=== PATIENT | female | born 1985 | race Caucasian/White ===

== ENCOUNTER 2018-08-18 15:07 | Emergency (ER) | payer OTHER, MEDICAID ==
[~2018-08-18] VITALS: Ht 160 cm; Wt 64.0 kg
[~2018-08-18 15:07] MED LIST: ACETAMINOPHEN-1 EAC1; HYDROCODONE-AP1 EAC6 PO; IBUPROFEN 800800 M1; IBUPROFEN 800800 M1 PO; MEDROLDOSEPACK PO; NORCO 5-325 TA1 EACH PO; PROMETHAZI6.25 MG/2 PO; ROBAXIN 750 MG750 M1 PO; TESSALON PERLE100 MG PO; VENTOLIN HFA 1818 GM INH; ZPAK PO
[2018-08-18] MEDS ORDERED: NORCO 5-325 TA1 EACH PO (15:55)
[2018-08-18] MEDS ORDERED: ZANAFLEX4 MG PO (15:55)
[2018-08-18] MEDS ORDERED: MEDROLDOSEPACK PO (15:55)
[2018-08-18] MEDS ORDERED: IBUPROFEN 800800 M1 PO (15:55)
[2018-08-18 16:10] VITALS: BP 148/103
== END 2018-08-18 16:10 | disposition home or self-care (01) ==
LOC: M.ERS 15:07
DX: M54.42 Lumbago with sciatica, left side (principal); G89.29 Other chronic pain; F17.210 Nicotine dependence, cigarettes, uncomplicated; Z98.890 Other specified postprocedural states

== ENCOUNTER 2018-10-26 20:02 | Emergency (ER) | payer OTHER, MEDICAID ==
[~2018-10-26] VITALS: Ht 167.6 cm; Wt 65.8 kg
[~2018-10-26 20:02] MED LIST changes: +ZANAFLEX4 MG PO
[2018-10-26 20:12] VITALS: BP 156/99
[2018-10-26] MEDS ORDERED: MEDROL4 M1 PO (20:40)
[2018-10-26] MEDS ORDERED: ACETAMINOPHEN-1 EAC1 PO (20:40)
== END 2018-10-26 21:00 | disposition home or self-care (01) ==
LOC: M.ERS 20:02
DX: M54.32 Sciatica, left side (principal); G89.29 Other chronic pain; F17.210 Nicotine dependence, cigarettes, uncomplicated

== ENCOUNTER 2018-12-26 20:56 | Emergency (ER) | payer OTHER, MEDICAID ==
[~2018-12-26] VITALS: Ht 160 cm; Wt 67.1 kg
[~2018-12-26 20:56] MED LIST changes: +ACETAMINOPHEN-1 EAC1 PO; +MEDROL4 M1 PO
[2018-12-26 21:30] LABS: ABSOLUTE BASOPHILS 0.1 thou/uL (0.0-0.2); ABSOLUTE EOSINOPHILS 0.5 thou/uL (0.0-0.7); ABSOLUTE LYMPHOCYTES 2.6 thou/uL (0.8-5.3); ABSOLUTE MONOCYTES 0.6 thou/uL (0.0-1.2); ABSOLUTE NEUTROPHILS 4.6 thou/uL (1.6-8.1); BASOPHILS 1.3 %; EOSINOPHILS 5.4 %; HEMATOCRIT 41.5 % (37.0-47.0); LYMPHOCYTES 30.6 %; MCH 29.7 pg (26.0-34.0); MCHC 33.7 g/dL (28.0-37.0); MCV 88.1 fL (80.0-100.0); MONOCYTES 7.6 %; MPV 7.8 fl. (7.2-11.1); NUCLEATED RBCS 0 /100WBC; PLATELET COUNT* 280 thou/uL (150-400); POLYS 55.1 %; RBC 4.71 mil/uL (4.20-5.00); WBC 8.4 thou/uL (4.0-11.0)
[2018-12-26 21:47] LABS: ALBUMIN 3.3 g/dL (3.4-5.0); CALCIUM 8.1 mg/dL (8.5-10.1); TOTAL BILIRUBIN 0.2 mg/dL (<0.1-1.0); TOTAL PROTEIN 6.3 g/dL (6.4-8.2)
[2018-12-26 21:48] LABS: POTASSIUM 4.5 mmol/L (3.5-5.1)
[2018-12-26 22:47] LABS: URINE BILIRUBIN NEGATIVE (Negative); URINE BLOOD NEGATIVE (Negative); URINE CLARITY CLEAR; URINE COLOR YELLOW; URINE GLUCOSE-RANDOM NEGATIVE (Negative); URINE KETONES NEGATIVE (Negative); URINE LEUKOCYTES-REFLEX 1+ (Negative); URINE NITRITE-REFLEX NEGATIVE (Negative); URINE PROTEIN NEGATIVE (Negative); URINE UROBILINOGEN 0.2 E.U./dl (0.2-1.0)
[2018-12-26 22:56] LABS: CASTS None Seen /LPF (None Seen); MUCUS None Seen strn/LPF (None Seen); SQUAMOUS >10 Many /LPF (0-3)
[2018-12-26 22:57] LABS: BACTERIA-REFLEX 1-9 Few /HPF (None Seen); CRYSTALS None Seen /LPF (None Seen); URINE RBC None Seen /HPF (0-2)
[2018-12-27] MEDS ORDERED: ZOFRAN ODT4 MG PO (00:34)
[2018-12-27] MEDS ORDERED: CIPROFLOXACIN500 M1 PO (00:34)
[2018-12-27 00:47] VITALS: BP 138/82
== END 2018-12-27 00:47 | disposition home or self-care (01) ==
LOC: M.ERS 20:56
PROVIDERS: Personal Emergency Response Attendant
DX: N39.0 Urinary tract infection, site not specified (principal); R42 Dizziness and giddiness; M54.9 Dorsalgia, unspecified; G89.29 Other chronic pain; F17.210 Nicotine dependence, cigarettes, uncomplicated; Z98.890 Other specified postprocedural states

== ENCOUNTER 2019-11-12 22:15 | Emergency (ER) | payer OTHER, MEDICAID ==
[~2019-11-12] VITALS: Ht 157.5 cm; Wt 67.1 kg
[~2019-11-12 22:15] MED LIST changes: +CIPROFLOXACIN500 M1 PO; +ZOFRAN ODT4 MG PO
[2019-11-12 22:45] LABS: ABSOLUTE BASOPHILS 0.1 thou/uL (0.0-0.2); ABSOLUTE EOSINOPHILS 0.4 thou/uL (0.0-0.7); ABSOLUTE MONOCYTES 0.5 thou/uL (0.0-1.2); ABSOLUTE NEUTROPHILS 5.3 thou/uL (1.6-8.1); BASOPHILS 0.6 %; EOSINOPHILS 4.6 %; HEMATOCRIT 38.3 % (37.0-47.0); HEMOGLOBIN 13.2 gm/dL (12.0-15.0); LYMPHOCYTES 24.2 %; MCHC 34.6 g/dL (28.0-37.0); MCV 89.5 fL (80.0-100.0); MONOCYTES 6.4 %; MPV 7.5 fl. (7.2-11.1); NUCLEATED RBCS 0 /100WBC; PLATELET COUNT* 236 thou/uL (150-400); POLYS 64.2 %; RBC 4.28 mil/uL (4.20-5.00); RDW-CV 13.3 % (10.5-14.5); WBC 8.3 thou/uL (4.0-11.0)
[2019-11-12 22:56] LABS: CALCIUM 7.8 mg/dL (8.5-10.1); CREATININE 0.8 mg/dL (0.6-1.3); POTASSIUM 3.5 mmol/L (3.5-5.1)
[2019-11-12 23:06] LABS: ALBUMIN 3.4 g/dL (3.4-5.0); MAGNESIUM 1.8 mg/dL (1.8-2.4); TOTAL BILIRUBIN 0.3 mg/dL (<0.1-1.0); TOTAL PROTEIN 6.5 g/dL (6.4-8.2)
[2019-11-12] MEDS ORDERED: NORCO 5-325 TA1 EAC1 PO (23:40)
[2019-11-12 23:53] VITALS: BP 167/78
--- NOTE | 2019-11-13 12:17 | EKG ---
[place] [address] ELECTROCARDIOGRAM REPORT Name: HUGO BEAR Room: [facility]#: [id number] Admission: 11/12/19 Attend Phys: Discharge: 11/12/19 Date of : 87 Date of Service: 11/12/192216 Report #: [id number] THIS REPORT FOR: //name// [facility] ED Test Date: 2019-11-12 Test Time: 22:17:48 Pat Name: HUGO BEAR Department: Room: Gender: F It Coordinator: DONNY : 1985 Requested By: Trung Colvin Order Number: [id number] MD: Erik Aguilar Measurements Intervals [place] Rate: 60 P: 34 WV: 164 QRS: -3 QRSD: 86 T: 21 QT: 388 QTc: 388 Interpretive Statements Sinus rhythm Probable left atrial enlargement No previous ECG available for comparison Electronically Signed On 11-13-2019 12:15:12 CDT by Erik Aguilar [email or web address] <ELECTRONICALLY SIGNED> By: Erik Aguilar MD, [facility] 11/13/19 1215 16 Erik Aguilar MD, [facility] /EPI
== END 2019-11-12 23:54 | disposition home or self-care (01) ==
LOC: M.ERS 22:15
PROVIDERS: Emergency Medicine Emergency Medical Services
DX: R07.89 Other chest pain (principal); F17.210 Nicotine dependence, cigarettes, uncomplicated

== ENCOUNTER 2020-12-10 13:26 | Inpatient (IN) | payer OTHER, MEDICAID ==
[~2020-12-10] VITALS: Ht 160 cm; Wt 67.1 kg
--- NOTE | ~2020-12-10 | OP ---
[facility] [address] [place] [address] OPERATIVE REPORT Name: HUGO BEAR Room: [address] [facility]#: [id number] Admission: 12/10/20 Attend Phys: Feliberto Johnson Discharge: Date of : 87 Report #: [id number] THIS REPORT FOR: cc: Physician not on staff Physician not on staff Feliberto Johnson MD ~ DOC #: [id number] Feliberto Johnson MD DATE OF SURGERY: 12/11/2020 PREOPERATIVE DIAGNOSIS: Acute appendicitis. POSTOPERATIVE DIAGNOSIS: Acute appendicitis. OPERATION: Laparoscopic appendectomy. SURGEON: Feliberto Johnson MD ANESTHESIA: General. ESTIMATED BLOOD LOSS: Minimal. SPECIMENS: Appendix. DESCRIPTION OF PROCEDURE: After informed consent was obtained, the patient was brought to the operating room and placed supine. SCDs were placed and working, preoperative antibiotics were administered, general anesthesia was induced. The abdomen was prepped and draped in the usual sterile fashion. A 10 mm incision was made below the umbilicus. Fascia was incised and a trocar was placed. Pneumoperitoneum was established. Right upper quadrant and left lower quadrant 5 mm trocars were placed. The appendix was grasped and retracted anteriorly. The mesoappendix was ligated using the LigaSure device. The appendix was somewhat edematous consistent with the CT findings. The base of the appendix was then ligated with a PDS Endoloop. The appendix was cut and placed into an Endopouch and removed. The fascia at the umbilicus was closed with a ilocxs-dg-qbvex 0 Vicryl. Skin was closed with 4-0 Monocryl. Incisions were dressed with Steri-Strips. COMPLICATIONS: None. DISPOSITION: The patient was taken to recovery in satisfactory condition. MD PURVI Rasmussen/[place] [address] OPERATIVE REPORT Name: HUGO BEAR Room: [address] [place] [facility]#: [id number] Admission: 12/10/20 Attend Phys: Feliberto Johnson Discharge: Date of : 87 Report #: [id number] By: [id number] Johnson MD /nt
[~2020-12-10 13:26] MED LIST changes: +NORCO 5-325 TA1 EAC1 PO
[2020-12-10 13:30] VITALS: BP 142/94
[2020-12-10] MEDS ORDERED: LYRICA 75 MG CA75 MG PO (13:41)
[2020-12-10 13:47] LABS: URINE BILIRUBIN NEGATIVE (Negative); URINE BLOOD NEGATIVE (Negative); URINE CLARITY CLEAR; URINE COLOR YELLOW; URINE GLUCOSE-RANDOM NEGATIVE (Negative); URINE KETONES NEGATIVE (Negative); URINE LEUKOCYTES NEGATIVE (Negative); URINE NITRITE NEGATIVE (Negative); URINE PROTEIN NEGATIVE (Negative); URINE UROBILINOGEN 0.2 E.U./dl (0.2-1.0)
[2020-12-10 13:53] LABS: ABSOLUTE EOSINOPHILS 0.2 thou/uL (0.0-0.7); ABSOLUTE LYMPHOCYTES 1.3 thou/uL (0.8-5.3); ABSOLUTE MONOCYTES 0.5 thou/uL (0.0-1.2); ABSOLUTE NEUTROPHILS 6.2 thou/uL (1.6-8.1); BASOPHILS 0.5 %; EOSINOPHILS 1.9 %; HEMATOCRIT 43.2 % (37.0-47.0); HEMOGLOBIN 14.9 gm/dL (12.0-15.0); LYMPHOCYTES 15.6 %; MCHC 34.5 g/dL (28.0-37.0); MCV 89.8 fL (80.0-100.0); MPV 7.8 fl. (7.2-11.1); NUCLEATED RBCS 0 /100WBC; PLATELET COUNT* 233 thou/uL (150-400); RBC 4.81 mil/uL (4.20-5.00); RDW-CV 12.7 % (10.5-14.5); WBC 8.2 thou/uL (4.0-11.0)
[2020-12-10 14:00] LABS: CREATININE 0.7 mg/dL (0.6-1.3)
[2020-12-10 14:01] LABS: CALCIUM 8.1 mg/dL (8.5-10.1)
[2020-12-10 14:03] LABS: TOTAL BILIRUBIN 0.5 mg/dL (<0.1-1.0); TOTAL PROTEIN 6.7 g/dL (6.4-8.2)
[2020-12-10 14:04] LABS: ALBUMIN 3.5 g/dL (3.4-5.0)
[2020-12-10 20:11] VITALS: BP 115/64
[2020-12-10 20:30] VITALS: BP 119/62
[2020-12-11 07:00] VITALS: BP 119/63
[2020-12-11 10:15] VITALS: BP 119/63
[2020-12-11 15:35] VITALS: BP 119/63
[2020-12-11 15:37] VITALS: BP 126/71
== END 2020-12-11 18:25 | disposition home or self-care (01) | DRG 343 ==
LOC: M.ERS 13:26 → M.ORTHSURG 17:13 → M.TBA-ER 17:13 → M.ORTHSURG 20:44
PROVIDERS: Emergency Medicine; ADMIT Surgery; ATTEND Surgery
PROC: 0DTJ4ZZ Resection of Appendix, Percutaneous Endoscopic Approach (ICD-10-PCS; principal; 2020-12-11)
DX: K35.80 Unspecified acute appendicitis (principal); M06.9 Rheumatoid arthritis, unspecified; G89.29 Other chronic pain; M54.9 Dorsalgia, unspecified; F17.210 Nicotine dependence, cigarettes, uncomplicated; Z20.822 Contact with and (suspected) exposure to COVID-19; Z79.899 Other long term (current) drug therapy; Z98.891 History of uterine scar from previous surgery

== ENCOUNTER 2021-06-20 19:34 | Emergency (ER) | payer OTHER, MEDICAID ==
[~2021-06-20] VITALS: Ht 157.5 cm; Wt 65.8 kg
[~2021-06-20 19:34] MED LIST changes: +LYRICA 75 MG CA75 MG PO
[2021-06-20 19:48] VITALS: BP 122/70
== END 2021-06-20 20:41 | disposition left against medical advice (07) ==
LOC: M.ERS 19:34
DX: R50.9 Fever, unspecified (principal); R05.9 Cough, unspecified; R51.9 Headache, unspecified; Z53.21 Procedure and treatment not carried out due to patient leaving prior to being seen by health care provider